=== PATIENT | male | born 1965 | race Two or more races ===

== ENCOUNTER 2017-11-22 16:48 | Inpatient (IN) | payer MEDICAID ==
[2017-11-22 16:58] VITALS: BMI 21.9
--- NOTE | 2017-11-22 17:26 | C.PDOC ---
History Of Present Illness 51 year old male presents to the ED requesting detox for heroin. admits to his last use of heroin to be prior to arrival. Patient denies SI/HI, hallucinations , CP, SOB, fever, chills. Time Seen by Provider: 11/22/17 17:02 Chief Complaint (Nursing): Substance Abuse History Per: Patient History/Exam Limitations: no limitations Onset/Duration Of Symptoms: Days Current Symptoms Are (Timing): Still Present Suicide/Self Injury Attempted (Context): None Modifying Factor(s): Other (Heroin) Severity: None Associated Symptoms: denies: Depression, Suicidal Thoughts, Suicidal Plan Involuntary Hold By: None Recent travel outside of the [place]: No Additional History Per: Patient Past Medical History Reviewed: Historical Data, Nursing Documentation, Vital Signs Vital Signs: Last Vital Signs Temp 98.4 F 11/22/17 21:01 Pulse 73 11/22/17 21:01 Resp 18 11/22/17 21:01 BP 166/108 H 11/22/17 21:01 Pulse Ox 98 11/22/17 21:46 - Medical History PMH: No Chronic Diseases Surgical History: No Surg Hx Family History: States: Unknown Family Hx - Social History Hx Alcohol Use: Yes Hx Substance Use: Yes - Immunization History Hx Tetanus Toxoid Vaccination: No Hx Influenza Vaccination: No Hx Pneumococcal Vaccination: No Review Of Systems Except As Marked, All Systems Reviewed And Found Negative. Psych: Negative for: Depression, Suicidal ideation Physical Exam - Physical Exam Appears: Non-toxic, No Acute Distress Skin: Normal Color, Warm, Dry Head: Atraumatic, Normacephalic Eye(s): bilateral: Normal Inspection Nose: No Discharge, No Deformity Oral Mucosa: Moist Neck: Normal ROM, Supple Chest: Symmetrical Cardiovascular: Rhythm Regular, No Murmur Respiratory: Normal Breath Sounds, No Rales, No Rhonchi, No Wheezing Gastrointestinal/Abdominal: Soft, No Tenderness, No Guarding, No Rebound Extremity: Normal ROM, No Tenderness, No Swelling Neurological/Psych: Oriented x3 ED Course And Treatment - Laboratory Results Result Diagrams: 11/22/17 17:26 11/22/17 17:26 O2 Sat by Pulse Oximetry: 98 (On RA) Pulse Ox Interpretation: Normal Medical Decision Making Medical Decision Making: Impression: Detox Labs: * Labs * UA 17:45 - Patient is medically cleared Disposition - Disposition Disposition: HOSPITALIZED Disposition Time: 21:46 Condition: STABLE - Clinical Impression Clinical Impression: Drug abuse - Scribe Statement The provider has reviewed the documentation as recorded by the Scribe Cristi Toledo All medical record entries made by the Scribe were at my direction and personally dictated by me. I have reviewed the chart and agree that the record accurately reflects my personal performance of the history, physical exam, medical decision making, and the department course for this patient. I have also personally directed, reviewed, and agree with the discharge instructions and disposition. Decision To Admit - Pt Status Changed To: Hospital Disposition Of: Inpatient - Admit Certification Admit to Inpatient:: After my assessment, the patient will require hospitalization for at least two midnights. This is because of the severity of symptoms shown, intensity of services needed, and/or the medical risk in this patient being treated as an outpatient. - InPatient: Physician Admission Certification: I certify that this patient requires 2 or more midnights of care for the following reason:: needs detox - . Bed Request Type: Detox Admitting Physician: Yann Cornejo Patient Diagnosis: Drug abuse
[2017-11-22 17:30] LABS: BASO # 0.1 K/uL (0.0-0.2); BASO % 0.5 % (0.0-2.0); EOS # 0.2 K/uL (0.0-0.7); EOS % 1.7 % (0.0-4.0); HEMOGLOBIN 14.5 g/dL (12.0-18.0); LYMPH # 3.6 K/uL (1.0-4.3); LYMPH % 37.8 % (20.0-40.0); MEAN CELL VOLUME 89.9 fL (80.0-94.0); MEAN CORPUSCULAR HEMOGLOBIN 30.1 pg (27.0-31.0); MEAN CORPUSCULAR HGB CONC 33.5 g/dL (33.0-37.0); MEAN PLATELET VOLUME 8.9 fL (7.2-11.7); MONO # 0.8 K/uL (0.0-0.8); MONO % 7.8 % (0.0-10.0); NEUT % 52.2 % (50.0-75.0); NRBC % 0.1 % (0.0-2.0); RBC 4.83 Mil/uL (4.40-5.90); RED CELL DISTRIBUTION WIDTH 14.6 % (11.5-14.5); WHITE BLOOD COUNT 9.6 K/uL (4.8-10.8)
[2017-11-22 17:43] LABS: ALB/GLOB RATIO 1.2 (1.0-2.1); ALT/SGPT 39 U/L (21-72); AST/SGOT 27 U/L (17-59); BLOOD UREA NITROGEN 8 mg/dL (9-20); CALCIUM 8.5 mg/dl (8.6-10.4); GFR AFRICAN-AMERICAN > 60; GFR NON-AFRICAN AMERICAN > 60
[2017-11-22 17:53] LABS: SQUAMOUS EPITHIAL < 1 /hpf (0-5); URINE BILIRUBIN NEGATIVE (NEGATIVE); URINE BLOOD 1+ (NEGATIVE); URINE CLARITY Clear (Clear); URINE COLOR Yellow (YELLOW); URINE GLUCOSE (UA) NORMAL (Normal); URINE LEUKOCYTE ESTERASE NEG Leu/uL (Negative); URINE PROTEIN NEGATIVE (NEGATIVE); URINE UROBILINOGEN NORMAL mg/dL (0.2-1.0)
[2017-11-22 18:09] LABS: BARBITURATES, UR NEGATIVE (NEGATIVE); BENZODIAZEPINES, UR NEGATIVE (NEGATIVE); PHENCYCLIDINE, UR NEGATIVE (NEGATIVE)
[2017-11-22 18:26] LABS: OPIATES, UR POSITIVE (NEGATIVE)
[2017-11-22] MEDS ORDERED: Aluminum Hydroxide/Magnesium Hydroxide Susp (30 mL) PO PRN (21:20)
--- NOTE | 2017-11-22 23:02 | PCM.BM ---
<Avelina Daniels - Last Filed: 11/22/17 22:59> Treatment Plan Problems - Problems identified on initial assessmt potential for opiates withdrawal Date Initiated: 11/22/17 Time Initiated: 23:00 Assessment reference: NA Status: Active potential for alcohol withdrawal Date Initiated: 11/22/17 Time Initiated: 23:01 Assessment reference: NA Status: Active anxiety Date Initiated: 11/22/17 Time Initiated: 23:01 Assessment reference: NA Status: Active - Milieu Protocol Maintain good personal hygiene: daily Encourage regular showers, daily Remind patient to perform daily oral care, daily Assist patient to perform ADL's Conduct patient checks and document Observation sheet: Q15 minutes Maintain personal safety: every shift Educate patient to report safety concerns to staff, every shift Monitor environment for contraband/sharps Medication safety: Monitor for expected outcome, potential side effects: every shift, Assess barriers to learning: every shift, Assess readiness for medication education: every shift <Yann Cornejo - Last Filed: 11/24/17 19:36> - Diagnosis (1) Opioid use disorder, severe, dependence Status: Acute Interventions: 11/24/17 19:36 * Assess 7x/week regarding severity of withdrawal * Educate regarding risks, benefits, side effects and alternatives of medications * Use Motivational Interviewing for abstinence * Use CBT for relapse prevention * Medication management for withdrawal symptoms * Encourage medication assisted treatment * <Aurora Michaud - Last Filed: 11/26/17 09:14> Family Contact Family involvement: Patient does not wish Family/SO involvement - Goals for Treatment Patient goals for treatment: Complete detox and transition to AA meetings. Discharge/Continuing Care - Education Needs Education Needs: Patient Medication, Patient Diagnosis/Disease Process, Patient Coping Skills, Patient Anger Management skills, Patient Placement options, Patient Community resources - Discharge Discharge Criteria: No longer exhibiting s/s of withdrawal, Reduction of target symptoms Discharge to:: Home - Treatment Team Participation Patient/Family/SO Statement: 11/26/17 09:14 "I just wanna go to meetings..." Discussed with Family/SO: No Was Patient/Family/SO present at Treatment Team Meeting: Yes
[2017-11-23] MEDS ORDERED: Buprenorphine Hydrochloride 2 mg SL ONE ×2 (10:56→12:00)
[2017-11-23] MEDS: guaiFENesin 100 mg/5 ml Syrup UD PO PRN (21:12)
--- NOTE | 2017-11-23 21:40 | PCM.PSYCH ---
Initial Psychiatric Evaluation - Initial Psychiatric Evaluation Type of Admission: Voluntary Legal Status: Capacity Chief Complaint (in patient's own words): "I need help" History of Present Illness and Precipitating Events: The patient is seen, chart reviewed and case discussed. This is a 51-year-old -[place] male, single with 3 children but all adults. He was working at a [employer] but laid off last month. He lives with his girlfriend and an 11-year-old grandson. The patient uses 12 packs intranasal heroin for the past 24 years. He was in detox twice but no rehabilitation and no MAT. He also drinks 2 shots of alcohol every day and uses cocaine once a week within marijuana joints. Denies withdrawal symptoms from alcohol and no history of seizures or DTs. Past psych history: Denies Family psych stay: Denies Medical history: Denies Current Medications: Active Medications Generic Name Dose Route Start Last Admin Trade Name Freq PRN Reason Stop Dose Admin Acetaminophen 650 mg 11/23/17 20:01 11/23/17 21:11 Tylenol 325mg Tab PO 650 mg Q8 PRN Administration Pain, moderate (4-7) Al Hydrox/Mg Hydrox/Simethicone 30 ml 11/22/17 21:20 Maalox 30 Ml PO TID PRN Indigestion / Heartburn Buprenorphine HCl 8 mg 11/24/17 10:00 Subutex SL 11/28/17 09:59 .TAPER TD Taper Clonidine HCl 0.1 mg 11/23/17 10:55 11/23/17 11:22 Catapres PO 0.1 mg Q8 PRN Administration COWS Score More or Equal to 5 Guaifenesin 100 mg 11/23/17 20:01 11/23/17 21:12 Robitussin PO 100 mg Q4H PRN Administration Cough Hydroxyzine HCl 50 mg 11/22/17 21:16 11/23/17 21:12 Atarax PO 50 mg Q6H PRN Administration Anxiety Ibuprofen 600 mg 11/22/17 21:16 Motrin Tab PO Q6H PRN Pain, moderate (4-7) Loperamide HCl 2 mg 11/22/17 21:20 Imodium PO Q8 PRN Diarrhea Ondansetron HCl 4 mg 11/22/17 21:20 Zofran Tab PO Q8 PRN Nausea/Vomiting Trazodone HCl 100 mg 11/22/17 21:16 11/23/17 21:12 Desyrel PO 100 mg HS PRN Administration Insomnia Past Psychiatric History - Past Psychiatric History Previous Treatment History: None Pertinent Medical Hx (Current Medical&Sleep Prob, Allergies): Allergies Allergy/AdvReac Type Severity Reaction Status Date / Time No Known Allergies Allergy Verified 11/22/17 16:58 No Known Home Med 11/22/17 Review of Systems - Neurological Neurological: UNREMARKABLE - Psychiatric Psychiatric: Abnormal Sleep Pattern, Anxiety, Difficulty Concentrating. absent : Hallucinations, Homicidal Ideation, Suicidal Ideation Mental Status Examination - Personal Presentation Personal Presentation: Looks older than stated age - Affect Affect: Constricted - Motor Activity Motor Activity: Calm - Reliability in Providing Information Reliability in Providing Information: Good - Speech Speech: Organized - Mood Mood: Anxious - Formal Thought Process Formal Thought Process: No Impairment - Cognitive Functions Orientation: Person, Place, Situation, Time Sensorium: Alert Attention/Concentration: Attentive Estimate of Intelligence: Average Judgement: Intact, as evidence by: Insight regarding need for hospitalization Memory: Recent intact, as evidence by: Ability to recall events of the day, Remote intact, as evidenced by: Abilit to recall sig. life events - Risk Risk: Withdrawal, Diminished functioning - Strength & Assets Inventory Strength & Assets Inventory: Cooperative - Limitations Limitations: Other DSM 5 DX - DSM 5 DSM 5 Diagnosis: Opioid withdrawal Opioid use disorder, severe Alcohol use disorder, moderate Cocaine use disorder, moderate Cannabis use disorder, moderate - Recommended/Plan of Treatment Treatment Recommendations and Plan of Treatment: Start taper with Subutex. Gabapentin for augmentation As needed medications All risks, benefits and alternatives of the meds discussed, and the pt agreed and understood. Attend groups and activities Supportive therapy and psychoeducation MS for abstinence CBT for relapse prevention Encourage MAT Refer to rehab or IOP, and self-help groups Smoking cessation with MS Nicotine patch if needed 34 min Projected ELOS: 4-5 days
[2017-11-24] MEDS: Buprenorphine Hydrochloride 2 mg SL SCH (09:20)
[2017-11-24] MEDS: guaiFENesin 100 mg/5 ml Syrup UD PO PRN ×3 (11:17→21:12)
--- NOTE | 2017-11-25 00:16 | PCM.PYCHPN ---
Psychiatric Progress Note - Psychiatric Progress Note Patient seen today, length of contact: 16 min Patient Chief Complaint: "I cannot sleep well" Problems Identified/Issues Discussed: The pt is seen, chart reviewed, case discussed with staff. The pt is compliant with medications and reports no side-effects. Symptoms are improving but needs more time to stabilize. After care discussed, support and psychoeducation Medication Change: Yes (detox changes daily) Medical Record Reviewed: Yes Mental Status Examination - Cognitive Function Orientation: Person, Place, Situation, Time Memory: Intact Attention: WNL Concentration: Poor Association: WNL Fund of Knowledge: WNL - Mood Mood: Anxious - Affect Affect: Constricted - Speech Speech: Appropriate - Formal Thought Process Formal Thought Process: No Impairment - Suicidal Ideation Suicidal Ideation: No - Homicidal Ideation Homicidal Ideation: No Goal/Treatment Plan - Goal/Treatment Plan Need for Continued Stay: Discharge may exacerbated symptoms, Severe functional impairment Progress Toward Problem(s) and Goals/Treatment Plan: Subutex taper Gabapentin for augmentation As needed medications All risks, benefits and alternatives of the meds discussed, and the pt agreed and understood. Attend groups and activities Supportive therapy and psychoeducation PR for abstinence CBT for relapse prevention Encourage MAT Refer to rehab or IOP, and self-help groups Smoking cessation with PR Nicotine patch if needed
[2017-11-25] MEDS: Buprenorphine Hydrochloride 2 mg SL SCH (10:11)
[2017-11-25] MEDS: guaiFENesin 100 mg/5 ml Syrup UD PO PRN ×2 (11:03→16:37)
--- NOTE | 2017-11-25 13:58 | PCM.PYCHPN ---
Psychiatric Progress Note - Psychiatric Progress Note Patient seen today, length of contact: 17 min Patient Chief Complaint: "I feel agitated" Problems Identified/Issues Discussed: The pt is seen, chart reviewed, case discussed with staff. The pt is compliant with medications and reports no side-effects. Symptoms are improving but needs more time to stabilize. After care discussed, support and psychoeducation Medication Change: Yes (detox changes daily) Medical Record Reviewed: Yes Mental Status Examination - Cognitive Function Orientation: Person, Place, Situation, Time Memory: Intact Attention: WNL Concentration: Poor Association: WNL Fund of Knowledge: WNL - Mood Mood: Anxious - Affect Affect: Constricted - Speech Speech: Appropriate - Formal Thought Process Formal Thought Process: No Impairment - Suicidal Ideation Suicidal Ideation: No - Homicidal Ideation Homicidal Ideation: No Goal/Treatment Plan - Goal/Treatment Plan Need for Continued Stay: Discharge may exacerbated symptoms, Severe functional impairment Progress Toward Problem(s) and Goals/Treatment Plan: Subutex taper Gabapentin for augmentation As needed medications All risks, benefits and alternatives of the meds discussed, and the pt agreed and understood. Attend groups and activities Supportive therapy and psychoeducation CO for abstinence CBT for relapse prevention Encourage MAT Refer to rehab or IOP, and self-help groups Smoking cessation with CO Nicotine patch if needed
[2017-11-26] MEDS: Buprenorphine Hydrochloride 2 mg SL SCH (09:48)
[2017-11-26] MEDS: guaiFENesin 100 mg/5 ml Syrup UD PO PRN ×3 (09:48→21:45)
--- NOTE | 2017-11-26 10:09 | PCM.PYCHPN ---
Psychiatric Progress Note - Psychiatric Progress Note Patient seen today, length of contact: 17 min Patient Chief Complaint: "I'm fine" Problems Identified/Issues Discussed: The pt is seen, chart reviewed, case discussed with staff. No new symptoms reported, improving slowly and needs more time No SEs from medications, risks discussed. After care discussed Support given, CBT and LA used briefly Medication Change: Yes (detox changes daily) Medical Record Reviewed: Yes Mental Status Examination - Cognitive Function Orientation: Person, Place, Situation, Time Memory: Intact Attention: WNL Concentration: Poor Association: WNL Fund of Knowledge: WNL - Mood Mood: Anxious - Affect Affect: Constricted - Speech Speech: Appropriate - Formal Thought Process Formal Thought Process: No Impairment - Suicidal Ideation Suicidal Ideation: No - Homicidal Ideation Homicidal Ideation: No Goal/Treatment Plan - Goal/Treatment Plan Need for Continued Stay: Discharge may exacerbated symptoms, Severe functional impairment Progress Toward Problem(s) and Goals/Treatment Plan: Opioid withdrawal Opioid use disorder, severe Alcohol use disorder, moderate Cocaine use disorder, moderate Cannabis use disorder, moderate Start taper with Subutex. Gabapentin for augmentation As needed medications All risks, benefits and alternatives of the meds discussed, and the pt agreed and understood. Attend groups and activities Supportive therapy and psychoeducation LA for abstinence CBT for relapse prevention Encourage MAT Refer to rehab or IOP, and self-help groups Smoking cessation with LA Nicotine patch if needed
[2017-11-26 21:12] VITALS: RESP 18
--- NOTE | 2017-11-27 09:25 | PCM.PYCHDC ---
Mental Status Examination - Mental Status Examination Orientation: Person, Place, Situation, Time Memory: Intact Mood: Neutral Affect: Broad Speech: Appropriate Attention: WNL Concentration: WNL Association: WNL Fund of Knowledge: WNL Formal Thought Process: No Impairment Description of patient's judgement and insight: good/good Psychotic Thoughts and Behaviors: denied Suicidal Ideation: No Current Homicidal Ideation?: No Plan: denied Discharge Summary - Discharge Note Reason for Hospitalization: The patient is seen, chart reviewed and case discussed. This is a 51-year-old -[place] male, single with 3 children but all adults. He was working at a [employer] but laid off last month. He lives with his girlfriend and an 11-year-old grandson. The patient uses 12 packs intranasal heroin for the past 24 years. He was in detox twice but no rehabilitation and no MAT. He also drinks 2 shots of alcohol every day and uses cocaine once a week within marijuana joints. Denies withdrawal symptoms from alcohol and no history of seizures or DTs. Past psych history: Denies Family psych stay: Denies Medical history: Denies Consultations:: List each consultation separately and include: 1. Reason for request. 2. Findings. 3. Follow-up Summary of Hospital Course include:: 1. Description of specific treatment plan utilized for patients during their course of treatmen. 2. Summarize the time- course for resolution of acute symptoms and/or regressed behaviors. 3. Describe issues identified and worked on during hospitalization. 4. Describe medication utilized. 5. Describe medical problems identified and treated. 6. Reassessment of suicide risk Summary of Hospital Course: The pt was admitted and started on detox treatment with psychotherapy, support, psychoeducation and medications. NC and CBT techniques were used. The pt was compliant with the treatment. The pt attended groups and activities, as well as milieu therapy. All the risks and benefits of medications were discussed and the patient understood and agreed. The pt improved with the treatment. Pt appreciate the treatment and care which was provided to him. At the time of d/c pt denied any depressive symptoms, manic symptoms. He denied any SI, HI, intent or plan. Pt denied any perceptual disturbances. He had behavioral issues. Psychoeducation was provided to the pt to be compliant with the medication, treatment plan and f/u plan after the discharge. After care discussed with the patient. - Diagnosis (1) Alcohol dependence Status: Resolved (2) Alcohol withdrawal Status: Resolved (3) Cocaine dependence Status: Resolved (4) Opioid use disorder, severe, dependence Status: Resolved (5) Opioid withdrawal Status: Resolved - Final Diagnosis (DSM 5) Condition upon Discharge: STABLE DSM 5: Opioid dependence Opioid withdrawal alcohol dependence and withdrawal cocaine dependence Disposition: HOME/ ROUTINE Follow-up Treatment Plan: Continue below medications after discharge. Follow after care plan as discussed. Use relapse prevention copying skills Return to ER or call 911 if suicidal, homicidal or symptoms relapse. Stay away from stress, alcohol and drugs. See primary doctor once a year. Time spend 28 minutes - Smoking Cessation Smoking Cessation Medication prescribed: Yes
[2017-11-27] MEDS: Buprenorphine Hydrochloride 2 mg SL SCH (09:51)
[2017-11-27] MEDS: guaiFENesin 100 mg/5 ml Syrup UD PO PRN (09:51)
[2017-11-27 10:28] VITALS: BP 124/86; PULSE 84; TEMP 98; O2SAT 98
== END 2017-11-27 10:34 | disposition home or self-care (01) | DRG 745 ==
LOC: C.ER 16:48 → C.7D 19:27
PROVIDERS: ADMIT Psychiatry & Neurology Psychiatry; ATTEND Psychiatry & Neurology Psychiatry
PROC: HZ2ZZZZ Detoxification Services for Substance Abuse Treatment (ICD-10-PCS; principal; 2017-11-22)
PROC: HZ52ZZZ Individual Psychotherapy for Substance Abuse Treatment, Cognitive-Behavioral (ICD-10-PCS; 2017-11-22)
PROC: HZ42ZZZ Group Counseling for Substance Abuse Treatment, Cognitive-Behavioral (ICD-10-PCS; 2017-11-22)
PROC: HZ59ZZZ Individual Psychotherapy for Substance Abuse Treatment, Supportive (ICD-10-PCS; 2017-11-22)
PROC: HZ56ZZZ Individual Psychotherapy for Substance Abuse Treatment, Psychoeducation (ICD-10-PCS; 2017-11-22)
PROC: HZ46ZZZ Group Counseling for Substance Abuse Treatment, Psychoeducation (ICD-10-PCS; 2017-11-22)
DX: F11.23 Opioid dependence with withdrawal (principal); F14.20 Cocaine dependence, uncomplicated; F10.239 Alcohol dependence with withdrawal, unspecified; F10.230 Alcohol dependence with withdrawal, uncomplicated; Y90.3 Blood alcohol level of 60-79 mg/100 ml; F12.90 Cannabis use, unspecified, uncomplicated